=== PATIENT | female | born 1950 | race Caucasian/White ===

== ENCOUNTER → 2018-04-14 18:06 | Outpatient (CLI) | payer MEDICARE, BC ==
[2009-09-29 09:55] VITALS: BMI 30.5
== END | disposition home or self-care (01) ==
LOC: D.MAMMO 16:00
DX: Z12.31 Encounter for screening mammogram for malignant neoplasm of breast (principal)

== ENCOUNTER → 2020-01-05 11:45 | Outpatient (CLI) | payer MEDICARE, BC ==
[2009-09-29 09:55] VITALS: BMI 30.5
== END | disposition home or self-care (01) ==
LOC: D.MAMMO 11:45
PROVIDERS: ATTEND Family Medicine
DX: Z12.31 Encounter for screening mammogram for malignant neoplasm of breast (principal)